=== PATIENT | female | born 1985 | race Two or more races ===

== ENCOUNTER 2024-06-08 16:29 | Emergency (ER) | payer BC ==
[~2024-06-08] VITALS: Ht 162.6 cm; Wt 63.5 kg
[2024-06-08] MEDS ORDERED: ENDOMETRIN100 MG (17:00)
[2024-06-08 17:35] LABS: HEMATOCRIT 37.9 % (36.0-45.00); HEMOGLOBIN 13.2 g/dL (12.0-15.00); MEAN CELL VOLUME 79.8 fL (80.00-100.00); MEAN CORPUSCULAR HEMOGLOBIN 27.8 pg (27.00-32.0); MEAN CORPUSCULAR HGB CONC 34.8 g/dl (32.0-36.0); PLATELET COUNT 411 K/uL (150-450); RED BLOOD COUNT 4.75 M/uL (4.00-6.00); RED CELL DISTRIBUTION WIDTH 12.8 % (11.5-14.5)
[2024-06-08 17:56] LABS: PH,URINE 6.5 (5.0-8.0); URINE APPEARANCE Clear; URINE BILIRRUBIN Negative (NEGATIVE); URINE BLOOD Moderate; URINE COLOR Yellow; URINE GLUCOSE Negative (NEGATIVE); URINE KETONE 15 (NEGATIVE); URINE LEUKOCYTE Trace; URINE NITRATE Negative; URINE PROTEIN Negative (NEGATIVE); URINE UROBILINOGEN 0.2 E.U./dl
[2024-06-08 17:59] LABS: URINE BACTERIA 1161.4 uL (0.0-1933); URINE RBC 42.5 uL (0.0-20.8); URINE WBC 31.5 uL (0.0-23.2)
== END 2024-06-08 19:17 | disposition home or self-care (01) ==
LOC: ER 16:30
PROVIDERS: General Practice
DX: O20.8 Other hemorrhage in early pregnancy (principal); Z3A.01 Less than 8 weeks gestation of pregnancy